=== PATIENT | male | born 1995 | race Caucasian/White ===

== ENCOUNTER 2022-02-06 17:25 | Emergency (ER) | payer BC ==
[2022-02-06 19:29] LABS: ACETAMINOPHEN <2.0 ug/mL; BLOOD UREA NITROGEN,BUN 14 mg/dL (7.0-18.0); CARBON DIOXIDE,CO2 26.3 mmol/L (21.0-32.0); CHLORIDE,CL 106 mmol/L (98-107); GLUCOSE RANDOM 101 mg/dL (74-106); SODIUM,NA 140 mmol/L (136-148)
== END 2022-02-06 22:50 | disposition home or self-care (01) ==
LOC: MW.ED 17:25
DX: F32.A Depression, unspecified (principal)
CPT/HCPCS: 36415; 80053; 80143; 80179; 80305-QW; 80307; 81001; 83735; 85025; 93005; 99284; 99285-25

== ENCOUNTER 2022-11-27 13:55 | Emergency (ER) | payer BC | END 2022-11-27 15:05 | LOC: MW.ED 13:55 | DX: D69.6 Thrombocytopenia, unspecified (principal); Z86.16 Personal history of COVID-19 | CPT/HCPCS: 36415; 82947; 84550; 85384; 85610; 99283; 99285 ==